=== PATIENT | male | born 1935 | race Caucasian/White ===

== ENCOUNTER → 2016-10-13 | Day surgery (SDC) | payer MEDICARE, BC ==
[~2016-10-13] MED LIST: Lactated Ringers 1,000 ML ONE; Lidocaine 1% 20 ML MDV ONE; Lidocaine 1% 30 ML SDV INJECT ONE; Midazolam 1 MG/ML 2 ML SDV IV ONE; Propofol 200 MG/20 ML SDV IV ONE; ceFAZolin 1 GM Vial IVPUSH ONE; fentaNYL 100 MCG/2 ML SDV IV ONE
[2016-10-13 10:49] VITALS: BP 121/64
--- NOTE | 2016-10-14 08:06 | OR ---
DATE OF OPERATION: 10/13/2016 PREOPERATIVE DIAGNOSIS: CARPAL TUNNEL SYNDROME, LEFT. POSTOPERATIVE DIAGNOSIS: CARPAL TUNNEL SYNDROME, LEFT. SURGEON: Dewayne Mendoza MD PROCEDURE: LEFT CARPAL TUNNEL RELEASE. ANESTHETIC: General versus local plus sedation. COMPLICATIONS: None. TOURNIQUET TIME: Was about 5 minutes. FINDINGS: At the time of surgery, the patient had a ganglion cyst within the carpal canal which was released and drained, otherwise there was normal anatomy of the carpal canal. DESCRIPTION OF PROCEDURE: The patient was brought to the operating room. Satisfactory IV sedation was induced. Patient positioned supine. The left hand was sterilely prepped and draped in usual fashion. The tourniquet was inflated to 250 mmHg around a well-padded left arm. The skin was infiltrated with 1% lidocaine in the area of the incisions and then in line with the 4th ray an incision was made in the palm, carried down to palmar cutaneous fascia, identified and then the transverse palmar ligament which was divided sharply under direct vision in the carpal canal exposing the underlying median nerve. It was noted that there was a considerable ganglion within the carpal canal. This was released and drained. The carpal tunnel release was completed under the wrist flexion crease by using a blunt scissor and dissecting proximally under the skin crease. Complete release of the transverse carpal ligament was accomplished. The ganglion cyst that had been present was completely drained. The wound was copiously irrigated. Tourniquet released, hemostasis obtained with bipolar cautery. The incision was then closed with horizontal mattress sutures, 4-0 Prolene. A well-padded sterile dressing was applied. The patient was transferred to the recovery room in stable condition. /BERNARDA /[id number]
== END ==
LOC: CC.SDS 06:54
PROVIDERS: ATTEND Orthopaedic Surgery
DX: G56.02 Carpal tunnel syndrome, left upper limb (principal); N40.1 Benign prostatic hyperplasia with lower urinary tract symptoms; N13.8 Other obstructive and reflux uropathy; I10 Essential (primary) hypertension; E78.00 Pure hypercholesterolemia, unspecified; Z88.8 Allergy status to other drugs, medicaments and biological substances; Z79.82 Long term (current) use of aspirin; Z79.899 Other long term (current) drug therapy; Z98.890 Other specified postprocedural states; Z72.0 Tobacco use
CPT/HCPCS: 64721; J0690; J2250; J2704; J3010; J7120; 01810

== ENCOUNTER 2018-08-17 10:07 | Emergency (ER) | payer MEDICARE, BC ==
[2018-08-17 10:32] VITALS: BP 141/67
[2018-08-17] MEDS ORDERED: Lidocaine 1% 20 ML MDV INJECT ONE (10:56)
--- NOTE | 2018-08-17 11:28 | EDM.PDOC ---
ED HPI GENERAL MEDICAL PROBLEM - General Chief Complaint: General Stated Complaint: thumb laceration Time Seen by Provider: 08/17/18 11:00 Source of Information: Reports: Patient History Limitations: Reports: No Limitations - History of Present Illness INITIAL COMMENTS - FREE TEXT/NARRATIVE: Felipe is an 82 year old male who presents to the ED with c/o laceration to his right thumb. He reports he was using a table saw to make a dog house and slid his thumb through the saw. He reports thumb was split in two. Did have large amount of bleeding, but bleeding is controlled in ED. He reports burning pain to his thumb. Up to date on tetanus. Onset: Today, Sudden Onset Date: 08/17/18 Onset Time: 10:00 Duration: Constant Location: Reports: Lower Extremity, Right (thumb) Quality: Reports: Burning Treatments [place]: Reports: Dressing(s) - Related Data Allergies Allergy/AdvReac Type Severity Reaction Status Date / Time CINDY Inhibitors Allergy Cannot Verified 05/01/15 18:36 Remember Home Meds: Home Meds Losartan/Hydrochlorothiazide [Losartan-HCTZ 100-25 MG] 1 cap PO DAILY 01/13/15 [ History] Simvastatin 1 tab PO DAILY 01/13/15 [History] Aspirin [Halfprin] 81 mg PO DAILY 04/30/15 [History] Multivit-Min/FA/Lycopene/Lut [Centrum Silver Ultra Men's] 1 tab PO DAILY [History] Acetaminophen/HYDROcodone [[place] 325-5 MG] 1 - 2 tab PO Q6H PRN #15 tablet 08/17 [Rx] Sulfamethoxazole/Trimethoprim [Bactrim Ds Tablet] 1 each PO BID 7 Days #14 tablet 08/17/18 [Rx] Past Medical History Cardiovascular History: Reports: High Cholesterol, Hypertension Gastrointestinal History: Reports: GERD Genitourinary History: Reports: Prostate Disorder Musculoskeletal History: Reports: Arthritis - Past Surgical History HEENT Surgical History: Reports: Eye Surgery GI Surgical History: Reports: Colonoscopy Male Surgical History: Reports: TURP-Transurethral Resection of Prostate Social & Family History - Family History Family Medical History: Noncontributory - Tobacco Use Smoking Status *Q: Never Smoker ED ROS GENERAL - Review of Systems Review Of Systems: ROS reveals no pertinent complaints other than HPI. ED EXAM, GENERAL - Physical Exam Exam: See Below Exam Limited By: No Limitations General Appearance: Alert, WD/WN, No Apparent Distress Peripheral Pulses: 2+: Radial (R) Extremities: Normal Range of Motion (patient has full ROM to right thumb, including flexion and extension of DIP, does have sensation to distal aspect of thumb on bilatearl sides of laceration), Normal Capillary Refill Skin Exam: Wound/Incision (7 cm laceration extending from palmar aspect of DIP to base of nail bed, thumb split down center) ED GENERAL MEDICAL PROCEDURES - Laceration/Wound Repair Right Digit - 1st (Thumb) Lac/wound length in cm: 7 Appearance: Irregular, Clean Distal NVT: Neuro & Vascular Intact, No Tendon Injury Anesthetic Type: Digital Local Anesthesia - Lidocaine (Xylocaine): 1% Plain Local Anesthetic Volume: Other (9) Skin Prep: Providone-Iodine (Betadine), Saline Saline irrigation (cc's): 90 Exploration/Debridement/Repair: Wound Explored, Minimal Debridement, Wound Margins Revised Closed with: Sutures Suture Size: other (5-0) # of Sutures: 11 Suture Type: Nylon, Interrupted, Simple Sterile Dressing Applied: Nurse Tetanus Status Addressed: Yes Complications: No Progress/Comments: Patient tolerated well. Course - Vital Signs Last Recorded V/S: Last Vital Signs Temp 98.2 F 08/17/18 10:31 Pulse 69 08/17/18 10:31 Resp 18 08/17/18 10:31 BP 141/67 H 08/17/18 10:31 Pulse Ox 99 08/17/18 10:31 - Orders/Labs/Meds Orders: Active Orders 24 hr Category Date Time Status Fingers Thumb Rt F5 [CR] Stat Exams 08/17/18 10:16 Taken Meds: Medications Discontinued Medications Generic Name Dose Route Start Last Admin Trade Name Freq PRN Reason Stop Dose Admin Lidocaine HCl 20 ml 08/17/18 10:56 08/17/18 11:10 Xylocaine 1% INJECT 08/17/18 10:57 20 ml ONETIME ONE Administration Neomycin/Polymyxin/Bacitracin 3 each 08/17/18 11:40 08/17/18 12:03 Triple Antibiotic Oint TOP 08/17/18 11:41 3 each ONETIME ONE Administration - Re-Assessments/Exams Free Text/Narrative Re-Assessment/Exam: Consulted with [facility] orthopedics who reviewed films. Recommend irrigating and closing wound and area should heal without difficulty. Does recommend antibiotic therapy for open fracture. Departure - Departure Time of Disposition: 12:09 Disposition: Home, Self-Care 01 Condition: Good Clinical Impression: Open fracture of distal phalanx Laceration of thumb with damage to nail Qualifiers: Encounter type: initial encounter Foreign body presence: without foreign body Laterality: right Qualified Code(s): S61.111A - Laceration without foreign body of right thumb with damage to nail, initial encounter - Discharge Information *PRESCRIPTION DRUG MONITORING PROGRAM REVIEWED*: Not Applicable *COPY OF PRESCRIPTION DRUG MONITORING REPORT IN PATIENT SHOSHANA: Not Applicable Prescriptions: Acetaminophen/HYDROcodone [[place] 325-5 MG] 1 - 2 tab PO Q6H PRN #15 tablet PRN Reason: Pain Sulfamethoxazole/Trimethoprim [Bactrim Ds Tablet] 1 each PO BID 7 Days #14 tablet Instructions: Sutured Wound Care, [id number] Referrals: Padmini Weathers, RE[facility] MAN [Primary Care Provider] - Forms: ED Department Discharge Additional Instructions: - Bactrim twice daily x 7 days - Keep area clean and dry - 1-2 tablets [place] every 6 hours as needed for pain. Tylenol or ibuprofen for less severe pain - Keep area covered if outdoors/in dirty environment - Monitor for s/s of infection (redness, foul smelling drainage, warmth) - Follow up for suture removal at physical August 28 - My Orders Last 24 Hours: My Active Orders 08/17/18 10:16 Fingers Thumb Rt F5 [CR] Stat - Assessment/Plan Last 24 Hours: My Active Orders 08/17/18 10:16 Fingers Thumb Rt F5 [CR] Stat
[2018-08-17] MEDS ORDERED: Bacitracin/Neomycin/Polymyxin B Oint 0.9 GM U/D Packet TOP ONE (11:40)
== END 2018-08-17 12:25 | disposition home or self-care (01) ==
LOC: CC.ED 10:07
DX: S62.521B Displaced fracture of distal phalanx of right thumb, initial encounter for open fracture (principal); E78.00 Pure hypercholesterolemia, unspecified; I10 Essential (primary) hypertension; K21.9 Gastro-esophageal reflux disease without esophagitis; W31.2XXA Contact with powered woodworking and forming machines, initial encounter; Z79.899 Other long term (current) drug therapy; Z79.82 Long term (current) use of aspirin
CPT/HCPCS: 12002; 73140-F5; 99283-25; J2001

== ENCOUNTER → 2019-08-23 | Day surgery (SDC) | payer MEDICARE, OTHER ==
[~2019-08-23] MED LIST changes: +Lactated Ringers 1,000 ML IV SCH; -Lactated Ringers 1,000 ML ONE; -Lidocaine 1% 20 ML MDV ONE; -Lidocaine 1% 30 ML SDV INJECT ONE; -Midazolam 1 MG/ML 2 ML SDV IV ONE; -ceFAZolin 1 GM Vial IVPUSH ONE; -fentaNYL 100 MCG/2 ML SDV IV ONE
[2019-08-23 12:22] VITALS: BP 119/55; PULSE 59
--- NOTE | 2019-08-23 13:10 | OR ---
DATE OF OPERATION: 08/23/2019 PREOPERATIVE DIAGNOSIS: 1. DYSPHAGIA. 2. GASTROESOPHAGEAL REFLUX DISEASE. POSTOPERATIVE DIAGNOSIS: 1. DYSPHAGIA. 2. GASTROESOPHAGEAL REFLUX DISEASE. SURGEON: Dewayne Bledsoe MD PROCEDURE: DIAGNOSTIC EGD WITH BIOPSIES X5, ADRIANA. ANESTHESIA: MAC. COMPLICATIONS: None. SPECIMEN: 1. Distal antral biopsy x2. 2. Antral ADRIANA. 3. Distal esophageal biopsy x3. FINDINGS: 1. Full-length EGD. 2. Apparent healed ulcer, distal antrum, peripyloric area. 3. Small hiatal hernia. 4. Chronic GERD. 5. Villa's esophagus. RECOMMENDATIONS: The patient will be placed on proton pump therapy and discussion of path reports in the next weeks. INDICATIONS: The patient had been having some issues with dysphagia. Does admit to some occasional heartburn. Food seems to give him a hard time swallowing at times in the cricopharyngeal region. We elected to proceed with diagnostic EGD. DESCRIPTION OF PROCEDURE: The patient was prepped and draped, placed in the left lateral decubitus position with head of bed elevated. A lubricated Olympus gastroscope was inserted over a bit, advanced to cricopharyngeus area, and easily intubated in the esophagus. The esophageal lining was benign until its most distal portion about 34 cm. The patient has Villa's esophagus extending 2 or 3 cm from where I suspected the EG junction would be. There is a small hernia present as well. Spontaneous reflux is seen. We did do biopsies of leading edge of the Villa's changes x3. The scope was advanced into the stomach, through the pylorus, and into the second portion of the duodenum. This and the duodenal bulb were benign. The scope was brought back into the stomach and retroflexed. The upper fundus and cardia were unremarkable. Upon straightening, the rest of the fundus appeared benign. The most distal portion of the antrum and then in and around the peripyloric area had some chronic gastritis changes. It appeared there might have been a healed ulcer near the pylorus. We did do 2 biopsies of that [facility] representative. Antral ADRIANA was obtained. Air was suctioned and the scope was removed without complication. JEFRY/BERNARDA /[id number]
== END ==
LOC: CC.SDS 10:18
PROVIDERS: ATTEND Family Medicine
DX: K21.0 Gastro-esophageal reflux disease with esophagitis (principal); K31.89 Other diseases of stomach and duodenum; K44.9 Diaphragmatic hernia without obstruction or gangrene; K22.70 Barrett's esophagus without dysplasia; I10 Essential (primary) hypertension; E78.00 Pure hypercholesterolemia, unspecified; Z88.8 Allergy status to other drugs, medicaments and biological substances; Z79.82 Long term (current) use of aspirin; Z79.899 Other long term (current) drug therapy; Z87.11 Personal history of peptic ulcer disease
CPT/HCPCS: 43239; 87081; 88305; J2704; J7120

== ENCOUNTER → 2021-02-04 | Day surgery (SDC) | payer MEDICARE, OTHER ==
[~2021-02-04] MED LIST changes: +Lidocaine 1% with EPINEPHrine 1:100,000 20 ML MDV ONE; +Ondansetron 4 MG/2 ML SDV ONE; -Propofol 200 MG/20 ML SDV IV ONE; +Propofol 200 MG/20 ML SDV ONE; +ceFAZolin 1 GM Vial IVPUSH ONE; +fentaNYL 100 MCG/2 ML SDV ONE
[2021-02-04 11:37] VITALS: BP 103/55; PULSE 67
--- NOTE | 2021-02-04 14:54 | OR ---
DATE OF OPERATION: 02/04/2021 PREOPERATIVE DIAGNOSIS: RIGHT INGUINAL HERNIA. POSTOPERATIVE DIAGNOSIS: RIGHT INDIRECT INGUINAL HERNIA. SURGEON: Apolinar Connor MD PROCEDURE: OPEN REPAIR OF RIGHT INDIRECT INGUINAL HERNIA WITH MESH. ANESTHESIA: General. ESTIMATED BLOOD LOSS: Minimum. SPECIMEN: Hernia sac. INDICATIONS: This 85-year-old male has a monthlong history of a symptomatic hernia on the right side. DESCRIPTION OF PROCEDURE: After adequate preparation, a transverse incision was made over the right groin and carried down to the external abdominal oblique. This was then dissected free from the subcutaneous tissue and an incision in the direction of the fibers was made to open up the external ring. The cord and sac were then elevated out of the inguinal canal and the sac dissected free up to the deep inguinal ring. This was then ligated at the deep ring and the distal sac amputated. A precut keyhole Prolene mesh was used to buttress the inguinal floor. This was sewn in a running fashion with 2-0 Prolene suture along the inguinal ligament in an interrupted fashion on the superior leaf of the internal oblique muscle. The mesh was taken around the keyhole to encompass the cord and laid laterally underneath the external oblique muscle. Several tacking sutures were used to close the mesh lateral to the keyhole ring. Hemostasis was controlled. Actually, bleeding was very minimal. 1% xylocaine with epinephrine was used to infiltrate the inguinal cord and floor. The external oblique was sewn over the cord structures with the Vicryl suture and Vicryl was used to close the skin. The skin was then infiltrated with the remaining xylocaine with epinephrine. The patient was taken to recovery room. RUPALI/BERNARDA /[id number]
== END ==
LOC: CC.SDS 06:57
PROVIDERS: ATTEND Surgery
DX: K40.90 Unilateral inguinal hernia, without obstruction or gangrene, not specified as recurrent (principal); N40.1 Benign prostatic hyperplasia with lower urinary tract symptoms; N13.8 Other obstructive and reflux uropathy; I10 Essential (primary) hypertension; E78.00 Pure hypercholesterolemia, unspecified; Z88.8 Allergy status to other drugs, medicaments and biological substances; Z79.82 Long term (current) use of aspirin; Z79.899 Other long term (current) drug therapy; Z98.890 Other specified postprocedural states
CPT/HCPCS: 00813; 49505; J0690; J2405; J2704; J3010; J7120; 88302

== ENCOUNTER → 2021-09-17 | Day surgery (SDC) | payer MEDICARE, OTHER ==
[~2021-09-17] MED LIST changes: +Ketamine 200 MG/20 ML MDV ONE; -Lactated Ringers 1,000 ML IV SCH; -Lidocaine 1% with EPINEPHrine 1:100,000 20 ML MDV ONE; +Lidocaine 2% 5 ML SDV ONE; -Ondansetron 4 MG/2 ML SDV ONE; -ceFAZolin 1 GM Vial IVPUSH ONE; -fentaNYL 100 MCG/2 ML SDV ONE; +fentaNYL 50 MCG/ML SDV ONE
[2021-09-17] MEDS: Lactated Ringers 1,000 ML IV SCH (09:26)
[2021-09-17 10:52] VITALS: BP 111/57; PULSE 57
== END ==
LOC: CC.SDS 09:02
PROVIDERS: ATTEND Family Medicine
DX: K22.70 Barrett's esophagus without dysplasia (principal); K44.9 Diaphragmatic hernia without obstruction or gangrene; K21.00 Gastro-esophageal reflux disease with esophagitis, without bleeding; I10 Essential (primary) hypertension; E78.00 Pure hypercholesterolemia, unspecified; N40.1 Benign prostatic hyperplasia with lower urinary tract symptoms; N13.8 Other obstructive and reflux uropathy; M67.439 Ganglion, unspecified wrist; R41.3 Other amnesia; Z79.82 Long term (current) use of aspirin; Z79.899 Other long term (current) drug therapy
CPT/HCPCS: 00731; 87081; 88305; 99100; J2704; J3010; J7120